=== PATIENT | female | born 1980 | race Two or more races ===

== ENCOUNTER 2018-09-19 17:05 | Emergency (ER) | payer MEDICARE, MEDICAID ==
[~2018-09-19] VITALS: Ht 167.6 cm; Wt 69.9 kg
[2018-09-19 17:35] VITALS: BP 128/87
--- NOTE | 2018-09-19 17:35 | NUR ---
ED Nurse Note: Pt AAO x4 present at ER c/o general body pain and SWANSON 8/10 and request refill for Milmay 5-325mg. Pt reported that she could not get refill due to distance from her PCP. VSS and pt is in stable condition.
[2018-09-19] MEDS ORDERED: IMITREX25 MG PO (17:41)
[2018-09-19] MEDS ORDERED: NORCO 10-325 T1 EACH ORAL (17:41)
[2018-09-19 17:51] VITALS: BP 130/87
--- NOTE | 2018-09-19 17:53 | NUR ---
ED Nurse Note: A/OX4. PT IS CLEARED BY DR. Sweetie HO INSTRUCTION AND PRESCRIPTION GIVEN, PT VERBALIZED UNDERSTANDING. ID WRIST BAND REMOVED. ALL BELONGINGS TAKEN BY PT. PT AMBULATED OUT OF ER WITH STEADY GAIT. DENIES PAIN AT THIS TIME.
--- NOTE | 2018-09-21 06:52 | Emergency Room Report ---
History of Present Illness General Chief Complaint: Headache Source: Patient Present Illness HPI 38-year-old female presents ED for evaluation. Patient is here for medication refills. States that she has history of brain aneurysm status post surgery in 2017. States that she ran out of her Ransom and Imitrex. States she is visiting her family in [place]. Pain is throbbing, 7 out of 10, nonradiating. denies photophobia blurry vision. Denies nausea or vomiting. Denies any neck stiffness. Denies fevers or chills. States this is typical of her headaches and not different. No other aggravating relieving factors. Denies any other associated symptoms Allergies: Coded Allergies: No Known Allergies (Unverified , 09/19/18) Patient History Past Medical History: asthma Past Surgical History: other - brain aneurysm Pertinent Family History: none Social History: Denies: smoking, alcohol use, drug use Last Menstrual Period: 09/19/2018 Now: No : 7 Para: 6 Immunizations: UTD Reviewed Nursing Documentation: PMH: Agreed; PSxH: Agreed Nursing Documentation-PMH Hx Cardiac Problems: Yes - Brain aneurysm 2017 Hx Asthma: Yes Review of Systems All Other Systems: negative except mentioned in HPI Physical Exam Vital Signs Date Time Temp Pulse Resp B/P (MAP) Pulse Ox O2 Delivery O2 Flow Rate FiO2 09/19/18 17:22 98.6 99 15 130/87 96 Room Air Sp02 EP Interpretation: reviewed, normal General Appearance: no apparent distress, alert, GCS 15, non-toxic Head: normocephalic, atraumatic Eyes: bilateral eye normal inspection, bilateral eye PERRL ENT: hearing grossly normal, normal pharynx, no angioedema, normal voice Neck: full range of motion, supple/symm/no masses Respiratory: chest non-tender, lungs clear, normal breath sounds, speaking full sentences Cardiovascular #1: regular rate, rhythm, no edema Cardiovascular #2: 2+ carotid (R), 2+ carotid (L), 2+ radial (R), 2+ radial (L) , 2+ dorsalis pedis (R), 2+ dorsalis pedis (L) Gastrointestinal: normal bowel sounds, non tender, soft, non-distended, no guarding, no rebound Rectal: deferred Genitourinary: normal inspection, no CVA tenderness Musculoskeletal: back normal, gait/station normal, normal range of motion, non- tender Neurologic: alert, oriented x3, responsive, motor strength/tone normal, sensory intact, speech normal Psychiatric: judgement/insight normal, memory normal, mood/affect normal, no suicidal/homicidal ideation Reflexes: 3+ bicep (R), 3+ bicep (L), 3+ tricep (R), 3+ tricep (L), 3+ knee (R) , 3+ knee (L) Skin: normal color, no rash, warm/dry, well hydrated Lymphatic: no adenopathy Medical Decision Making Diagnostic Impression: Primary Impression: Medication refill ER Course 38-year-old female presents to ED refill of her medication. History of brain aneurysm - takes Imitrex and Ransom hospital course: After initial history and physical, reviewed EMR. Patient has had recent descriptions filled for her Ransom. All of which are short courses. I agreed to provide her with a three-day supply. However I explained to the patient that the emergency room is not an appropriate avenue for chronic pain medication refills. She needs to talk to her PMD for an adequate supply of medication and not go from ER to ER for medication as she could be denied medication in the future. Patient displays understanding. Diagnosis-encounter for medication refill Stable and discharged to home with prescription for Ransom and Imitrex. Followup with PMD. Return to ED if symptoms recur or worsen Last Vital Signs Date Time Temp Pulse Resp B/P (MAP) Pulse Ox O2 Delivery O2 Flow Rate FiO2 09/19/18 17:51 98.6 99 15 130/87 96 Room Air Status: improved Disposition: HOME, SELF-CARE Condition: Stable Scripts Sumatriptan Succinate (IMITREX) 25 Mg Tablet 25 MG PO DAILY for 30 Days, TAB Prov: Manpreet Frey MD 09/19/18 Hydrocodone Bit/Acetaminophen 10-325* (NORCO 10-325*) 1 Each Tablet 1 TAB ORAL BID PRN for For Pain for 3 Days, TAB 0 Refills PRN PAIN Prov: Manpreet Frey MD 09/19/18 Referrals: NON PHYSICIAN (PCP) Patient Instructions: Medicine Refill at the Emergency Department Manpreet Frey MD Sep 21, 2018 06:52
== END 2018-09-20 | disposition home or self-care (01) ==
LOC: EMR 09-20 03:29
DX: Z02.89 Encounter for other administrative examinations (principal); R51 Headache; J45.909 Unspecified asthma, uncomplicated; Z98.890 Other specified postprocedural states
CPT/HCPCS: 99282